=== PATIENT | female | born 1965 | race American Indian/Alaskan Native ===

== ENCOUNTER 2021-08-31 17:40 | Emergency (ER) | payer SELFPAY ==
[2021-08-31 18:14] VITALS: BP 130/89
== END 2021-08-31 19:45 | disposition left against medical advice (07) ==
LOC: ED 17:40
DX: R07.9 Chest pain, unspecified (principal); Z53.21 Procedure and treatment not carried out due to patient leaving prior to being seen by health care provider; M79.606 Pain in leg, unspecified
CPT/HCPCS: 93005